=== PATIENT | female | born 1955 | race Caucasian/White ===

== ENCOUNTER 2017-09-04 17:04 | Emergency (ER) | payer MEDICARE, OTHER ==
[~2017-09-04] VITALS: Ht 157.5 cm; Wt 47.3 kg
[~2017-09-04 17:04] MED LIST: ADDERALL; ADDERALL XR10 MG PO; ARICEPT; ATIVAN1 MG PO; CARAFATE 1GM1 G PO; CELEXA; COLACE 100100 MG/CAP PO; DIFFERIN TP; DOXYCYCLINE 10100 MG PO; FLEXERIL10 MG PO; IBUPROFEN800 MG PO; LASIX 20MG TABL20 MG PO; LEVAQUIN 5500 MG/TAB PO; LEVOTHYROXINE PO; LIDOCAINE; LISINOPRIL20 MG PO; LORTAB 5/500 501 TAB PO; METAMUCIL1 PDR PO; MOTRIN 600600 MG/TAB PO; NORCO 325 MG-51 TAB PO; PERCOCET 325 MG1 TA2 PO; PERCOCET 500 MG1 TAB PO; RITALIN10 MG PO; SYNTHROID0.075 MG/T PO; THERAPEUTIC VIT1 CAP PO; VALIUM 2MG T2 MG/TAB PO; VALIUM 5MG T5 MG/TAB PO; VOLTAREN GEL1% TP; XANAX1 MG PO; ZANAFLEX4 M1 PO; ZANTAC 150MG T150 MG PO; ZANTAC PO; ZOCOR40 MG PO
[2017-09-04 17:23] LABS: COLLECTION METHOD CLEAN CATCH
[2017-09-04 17:30] LABS: PH 6 (5-8); SQUAMOUS EPITHELIAL None Seen /hpf; URINE APPEARANCE Clear; URINE BACTERIA None Seen /hpf; URINE BILIRUBIN Negative (NEGATIVE); URINE BLOOD 1+ (NEGATIVE); URINE COLOR Straw; URINE GLUCOSE Negative (NEGATIVE); URINE KETONE Negative (NEGATIVE); URINE LEUKOCYTE ESTERASE Negative (NEGATIVE); URINE NITRATE Negative (NEGATIVE); URINE PROTEIN(semi-quant) Negative (NEGATIVE); URINE RBC None Seen /hpf; URINE UROBILINOGEN Negative (NEGATIVE); URINE WBC 0-2 /hpf
[2017-09-04 17:37] LABS: TRICYCLIC ANTIDEPRESS URINE NEGATIVE
[2017-09-04 18:01] LABS: BASO % 0.3 % (0.0-2.0); EOS # 0.1 (0.0-0.7); EOS % 1.4 % (0-4.0); GRAN # 1.7 (1.4-6.5); GRAN % 48.2 % (42.2-75.2); HEMOGLOBIN 13.3 g/dl (12.5-16.0); LYMPH # 1.4 (1.2-3.4); MEAN CELL VOLUME 97 fl (80.0-100.0); MEAN CORPUSCULAR HEMOGLOBIN 33 pg (27.0-31.0); MEAN CORPUSCULAR HGB CONC 34 g/dl (33.0-37.0); MONO # 0.4 (0.1-0.6); MONO % 11.1 % (1.7-9.3); PLATELET COUNT 224 K/mm3 (130-400); RED BLOOD COUNT 4.04 M/mm3 (4.10-5.30); REDCELL DISTRIBUTION WIDTH-CV 12.5 % (11.5-14.5)
[2017-09-04 18:45] LABS: ALANINE AMINOTRANSFERASE 31 U/L (9-52); ALBUMIN 4.7 gm/dL (3.5-5.0); ALCOHOL(ethanol),MEDICAL 161 mg/dL; ALKALINE PHOSPHATASE 58 U/L (50-136); ANION GAP 12 mmol/L (7-16); AST,SGOT 33 U/L (15-37); BILIRUBIN,TOTAL 0.3 mg/dL (0.0-1.0); BLOOD UREA NITROGEN 7 mg/dL (7-17); CALCIUM 9.7 mg/dL (8.4-10.2); CARBON DIOXIDE 25 mmol/L (22-30); CHLORIDE 106 mmol/L (98-107); CREATININE, serum 0.53 mg/dL (0.52-1.25); GLUCOSE 87 mg/dL (74-106); POTASSIUM 4.2 mmol/L (3.4-5.0); SODIUM 143 mmol/L (137-145); TOTAL PROTEIN 7.1 gm/dL (6.4-8.2)
[2017-09-04 18:48] LABS: ACETAMINOPHEN < 10 ug/mL (10-30); SALICYLATE < 1.0 mg/dL
[2017-09-04 19:15] LABS: TSH w REFLEX 0.015 uIU/mL (0.465-4.680)
[2017-09-04 22:30] VITALS: TEMP 98
[2017-09-05] VITALS: BP 130/94; PULSE 82
== END 2017-09-05 00:08 | disposition home or self-care (01) ==
LOC: COL.ER 17:04
PROVIDERS: Emergency Medicine
DX: T42.4X2A Poisoning by benzodiazepines, intentional self-harm, initial encounter (principal); S61.511A Laceration without foreign body of right wrist, initial encounter; E03.9 Hypothyroidism, unspecified; F32.9 Major depressive disorder, single episode, unspecified; G35 Multiple sclerosis; F90.9 Attention-deficit hyperactivity disorder, unspecified type; Z87.891 Personal history of nicotine dependence; Z23 Encounter for immunization; X78.9XXA Intentional self-harm by unspecified sharp object, initial encounter

== ENCOUNTER → 2018-10-18 | Outpatient (CLI) | payer MEDICARE, OTHER | LOC: COL.RAD 13:57 | DX: M79.89 Other specified soft tissue disorders (principal); R93.6 Abnormal findings on diagnostic imaging of limbs ==

== ENCOUNTER → 2018-12-31 | Outpatient (CLI) | payer MEDICARE, OTHER ==
[2018-12-31 17:11] LABS: URIC ACID 4.6 mg/dL (2.5-6.2)
[2018-12-31 17:12] LABS: C-REACTIVE PROTEIN < 0.5 mg/dL (0.0-0.9)
[2019-01-01 16:27] LABS: RHEUMATOID FACTOR-SCREEN <15 IU/mL (0-29)
== END ==
LOC: COL.LAB 16:15
PROVIDERS: Orthopaedic Surgery Sports Medicine
DX: M25.521 Pain in right elbow (principal)

== ENCOUNTER 2021-09-07 15:40 | Outpatient (CLI) | payer MEDICARE, OTHER ==
[2021-09-07] VITALS (8 sets, daily range): BP systolic 118–131; BP diastolic 83–108; PULSE 82–106; TEMP 98
[2021-09-07] MEDS ORDERED: FLEXERIL 1010 MG/TAB PO (16:39)
[2021-09-07] MEDS ORDERED: CRESTOR20 MG PO (16:40)
--- NOTE | 2021-09-07 17:18 | NUR ---
rEPORT TO Janna Henderson.
== END 2021-09-07 17:50 | disposition home or self-care (01) ==
LOC: EUO 15:40
DX: E83.42 Hypomagnesemia (principal)
CPT/HCPCS: J3475

== ENCOUNTER 2021-12-31 16:22 | Emergency (ER) | payer MEDICARE, OTHER ==
[~2021-12-31] VITALS: Ht 152.4 cm; Wt 63.6 kg
[~2021-12-31 16:22] MED LIST changes: +CRESTOR20 MG PO; +FLEXERIL 1010 MG/TAB PO
[2021-12-31 17:04] VITALS: TEMP 98
[2021-12-31 17:50] LABS: COLLECTION METHOD CLEAN CATCH
[2021-12-31 17:56] LABS: PH 6 (5-8); SQUAMOUS EPITHELIAL 0-2 /hpf (0-10); URINE APPEARANCE Clear (CLEAR/HAZY); URINE BACTERIA None Seen /hpf (NONE SEEN); URINE BILIRUBIN Negative (NEGATIVE); URINE BLOOD Negative (NEGATIVE); URINE COLOR Yellow (YELLOW); URINE GLUCOSE Negative (NEGATIVE); URINE KETONE Trace (NEGATIVE); URINE LEUKOCYTE ESTERASE Negative (NEGATIVE); URINE NITRATE Negative (NEGATIVE); URINE PROTEIN(semi-quant) Negative (NEGATIVE); URINE RBC 0-2 /hpf (0-2); URINE UROBILINOGEN Negative (NEGATIVE)
[2021-12-31] MEDS ORDERED: NORCO 325 MG-51 TAB PO (18:39)
[2021-12-31 19:05] VITALS: BP 139/87; PULSE 83
== END 2021-12-31 19:05 | disposition home or self-care (01) ==
LOC: COL.ER 16:22
PROVIDERS: Personal Emergency Response Attendant
DX: R51.9 Headache, unspecified (principal); M54.9 Dorsalgia, unspecified; F17.210 Nicotine dependence, cigarettes, uncomplicated; Z28.310 Unvaccinated for COVID-19